=== PATIENT | male | born 1970 | race Caucasian/White ===

== ENCOUNTER 2018-08-28 06:16 | Observation (INO) | payer OTHER ==
[2018-08-26 15:08] LABS: BASOPHILS # (AUTO) 0.1 (0.0-0.1); BASOPHILS % 0.9 % (0.0-1.0); EOSINOPHILS # (AUTO) 0.4 (0.0-0.4); EOSINOPHILS % 3.7 % (0.0-6.0); HEMATOCRIT 47.3 % (38.2-49.6); LYMPHOCYTES # (AUTO) 3.5 (1.0-3.2); LYMPHOCYTES % 30.2 % (18.0-39.1); MEAN CORPUSCULAR HEMOGLOBIN 32.6 pg (28-32); MEAN CORPUSCULAR HGB CONC 33.8 g/dL (31-35); MEAN CORPUSCULAR VOLUME 96.3 fL (81-99); MONOCYTES % 8.8 % (4.4-11.3); NEUTROPHILS # (AUTO) 6.5 (2.1-6.9); PLATELET COUNT 258 x10e3/uL (140-360); RED BLOOD COUNT 4.91 x10e6/uL (4.3-5.7); RED CELL DISTRIBUTION WIDTH 12.8 % (11.7-14.4)
[2018-08-26 15:23] LABS: INR 0.85; PARTIAL THROMBOPLASTIN TIME 27.9 seconds (23.8-35.5); PROTHROMBIN TIME 12.4 seconds (11.9-14.5)
[2018-08-26 15:28] LABS: ANION GAP 17.6 mmol/L (8-16); BLOOD UREA NITROGEN 16 mg/dL (7-26); BUN/CREATININE RATIO 17 (6-25); CALCIUM 10.4 mg/dL (8.4-10.2); CARBON DIOXIDE 26 mmol/L (22-29); CHLORIDE 100 mmol/L (98-107); CREATININE, SERUM 0.93 mg/dL (0.72-1.25); EST GLOMERULAR FILTRATION RATE > 60 ML/MIN (60-); GLUCOSE 118 mg/dL (74-118); POTASSIUM 4.6 mmol/L (3.5-5.1); SODIUM 139 mmol/L (136-145)
--- NOTE | 2018-08-26 16:05 | Diagnostic Imaging Report ---
EXAMINATION: PA and lateral views of the chest. COMPARISON: None CLINICAL HISTORY: Preadmitted for cervical fusion DISCUSSION: Lungs are well-inflated. No focal airspace consolidation, pleural effusion, or pneumothorax. Cardiomediastinal contour and pulmonary vasculature are within normal limits. No acute osseous abnormality. IMPRESSION: No acute cardiopulmonary abnormalities. Signed by: Dr. Rohit Zavala M.D. on 08/26/2018 4:01 PM
[~2018-08-28] VITALS: Ht 185.4 cm; Wt 94.3 kg
[~2018-08-28 06:16] MED LIST: ASPIRIN325 MG PO; DIOVAN160 MG PO; JANUMET 50-1,01 EACH PO; METOPROLOL SUCC50 MG PO
[2018-08-28] MEDS ORDERED: BUPIVACAINE 0.5%/EPI 30 ML SDV INJ ONE (06:41)
[2018-08-28] MEDS ORDERED: THROMBIN FOR SOLN 5,000 UNIT VIAL ONE (06:42)
[2018-08-28] MEDS ORDERED: GELATIN SPONGE 12-7MM ONE (06:42)
[2018-08-28] MEDS ORDERED: BACITRACIN 50,000 UNIT VIAL ONE (06:42)
[2018-08-28] MEDS ORDERED: LIDOCAINE HCL (LTA) 4 ML SOLN ONE (06:57)
[2018-08-28] MEDS ORDERED: ACETAMINOPHEN 1000 MG/100 ML 100 ML IV ONE (06:57)
[2018-08-28] MEDS ORDERED: CEFAZOLIN SOD 2 GM/D5W 50ML 50 ML IV ONE (07:19)
[2018-08-28 07:48] LABS: CLARITY,URINE CLEAR (CLEAR); COLOR,URINE YELLOW (YELLOW)
[2018-08-28 07:49] LABS: BILIRUBIN,URINE NEGATIVE (NEGATIVE); KETONES,URINE NEGATIVE (NEGATIVE); LEUKOCYTE ESTERASE ,URINE NEGATIVE (NEGATIVE); NITRITE,URINE NEGATIVE (NEGATIVE); PROTEIN,URINE DIPSTICK NEGATIVE (NEGATIVE); URINE UROBILINOGEN 0.2 mg/dL (0.2 - 1)
[2018-08-28] MEDS ORDERED: ACETAMINOPHEN 325 MG TAB PO PRN (10:30)
[2018-08-28] MEDS ORDERED: CARISOPRODOL 350 MG TAB PO PRN (10:30)
[2018-08-28] MEDS ORDERED: ZOLPIDEM TARTRATE 5 MG TAB PO PRN (10:30)
[2018-08-28] MEDS ORDERED: MAGNESIUM/ALUMINUM/SIMETHICONE 30 ML UDC PO PRN (10:30)
[2018-08-28] MEDS ORDERED: ONDANSETRON HCL INJ 2 MG/ML VIAL IV PRN (10:30)
[2018-08-28] MEDS ORDERED: OXYCODONE/ACETAMINOPHEN 5-325 1 EACH TABLET PO PRN (10:30)
[2018-08-28] MEDS ORDERED: HYDROMORPHONE 2MG/ML 2 MG/ML ML IV PRN (10:30)
[2018-08-28] MEDS ORDERED: PROMETHAZINE HCL (IM) 25 MG/ML VIAL IM PRN (10:30)
[2018-08-28] MEDS ORDERED: MORPHINE SULFATE 5 MG/ML VIAL IM PRN (10:30)
--- OUTSIDE RECORDS SUMMARY | 2018-08-28 10:46 | XMS REPORT ---
Author Author [facility] Address Unknown Phone Unavailable Care Team Providers Care Hemotherapist Name Role Phone SAMMI WOMACK Unavailable Unavailable Problems This patient has no known problems. Allergies, Adverse Reactions, Alerts This patient has no known allergies or adverse reactions. Medications This patient has no known medications. Results Test Description Test Time Test Comments Text Results Atomic Results Result Comments CHEST 2 VIEWS 2018-08-26 16:00:00 [facility] [address] [place] [address] Patient Name: SO ROMERO MR #: [id number] : 1970 Age/Sex: 48/M Req #: [id number] Adm Physician: Ordered by: SAMMI WOMACK MD Report #: [id number] Location: OR Room/Bed: Procedure: [id number] DX/CHEST 2 VIEWS Exam Date: 08/26/18 Exam Time: 1530 REPORT STATUS: Signed EXAMINATION: PA and lateral views of the chest. COMPAR SIGIFREDO: None CLINICAL HISTORY: Preadmitted for cervical fusion DISCUSSION: Lungs are well-inflated. No focal airspace consolidation, pleural effusion, or pneumothorax. Cardiomediastinal contour and pulmonary vasculature are within normal limits. No acute osseous abnormality. IMPRESSION: No acute cardiopulmonary abnormalities. Signed by: Dr. Sophia Peterson M.D. on 08/26/2018 4:01 PM Dictated By: SOPHIA PETERSON MD 1601 Transcribed By: SUNG on 08/26/18 1601 COPY TO: SAMMI WOMACK MD
--- OUTSIDE RECORDS SUMMARY | 2018-08-28 10:46 | XMS REPORT | Clinical Summary ---
Author Author [facility] Address Unknown Phone Unavailable Care Team Providers Care Organic Extractions Technician Name Role Phone Baljinder Dumont MD PCP Allergies No Known Allergies Medications End Date Status Medication Sig Dispensed Refills Start Date Active aspirin 325 MG tablet Take 325 mg 5 by mouth 8 daily. Active metoprolol tartrate Take 50 mg by 5 (LOPRESSOR) 50 mg tablet mouth 2 (two) 8 times a day with meals. Active sitaGLIPtin-metformin Take 1 tablet 0 (JANUMET) 50-1,000 mg per by mouth 2 tablet (two) times a day with meals. Active valsartan (DIOVAN) 160 MG Take 160 mg 0 tablet by mouth daily. Active Problems Problem Noted Date Ascending aortic aneurysm 04/02/2018 Aortic insufficiency due to bicuspid aortic valve 04/02/2018 Encounters Care Team Description Date Type Specialty Baljinder Dumont MD Pritchard, Sherry M, RD Diabetes mellitus without complication (Primary Dx) 04/07/2018 Consult Weight Management Rusty Du MD Ascending aortic aneurysm (Primary Dx); Aortic insufficiency due to bicuspid aortic valve 04/02/2018 Office Visit Cardiovascular Billie Stout, DENISE Follow-up on New referral for Dr. Du from Dr. Marie (Follow- up on New referral for Dr. Du from Dr. Marie) 04/01/2018 Documentation Cardiovascular Jesus Parks MD Abnormal stress test; Chest pain, unspecified type 03/24/2018 Hospital Radiology Encounter Jesus Parks MD Abnormal stress test (Primary Dx); Chest pain, unspecified type 03/21/2018 Transcribe Access Orders after 08/27/2017 Social History Date Tobacco Use Types Packs/Day Years Used Current Every Day Smoker Cigars 1 Smokeless Tobacco: Former Chew User Comments: Cigars Alcohol Use Drinks/Week oz/Week Comments Yes 12 pack per week Sex Assigned at Date Recorded Not on file Industry Job Start Date Occupation Not on file Not on file Not on file Travel End Travel History Travel Start No recent travel history available. Last Filed Vital Signs Time Taken Vital Sign Reading 04/02/2018 8:28 AM CDT Blood Pressure 152/86 04/02/2018 8:28 AM CDT Pulse 78 04/02/2018 8:28 AM CDT Temperature 37.1 C (98.7 F) 03/24/2018 1:06 PM CDT Respiratory Rate 17 03/24/2018 1:06 PM CDT Oxygen Saturation 99% - Inhaled Oxygen - Concentration 04/07/2018 1:10 PM CDT Weight 101 kg (222 lb) 04/07/2018 1:10 PM CDT Height 185.4 cm (6' 1") 04/07/2018 1:10 PM CDT Body Mass Index 29.29 Plan of Treatment Health Maintenance Due Date Last Done Comments DIABETIC RETINAL EYE EXAM 1970 DIABETIC FOOT EXAM 1981 URINE MICROALBUMIN 1981 INFLUENZA VACCINE 03/12/2018 Procedures Comments Procedure Name Priority Date/Time Associated Diagnosis CTA CORONARY ARTERIES W Routine 03/24/2018 Abnormal stress test CONTRAST 2:40 PM CDT Chest pain, unspecified type after 08/27/2017 Results * Cv cta coronary arteries w contrast (03/24/2018 2:40 PM CDT) Narrative Performed At EXAMINATION:CV CTA CORONARY ARTERIES W CONTRAST [facility] CLINICAL HISTORY:R94.39 Abnormal result of other cardiovascular function study, R07.9 Chest painunspecified, ABN STRESS TECHNIQUE: Multiple CT angiographic images of the heart were obtained during intravenous administration of iodinated contrast. Computerized reformatted images of the coronary arteries and 3-D volume rendered images of the heart were also obtained. Sublingual nitroglycerin was utilized for coronary dilatation. CT imaging was performed with iterative reconstruction techniques and/or automated exposure control to reduce radiation dose. STUDY QUALITY: Satisfactory DOSE (DLP):1477 mGycm COMPARISON:None. FINDINGS: General: Heart is normal in size. The patient is codominant, with PDA contributions from both the RCA and left circumflex. Left main: Normal in caliber and free of disease, normal origin from left coronary cusp. Left anterior descending (LAD): Normal caliber vessel. Mild mixed calcified and noncalcified plaque in the proximal LAD, but with less than 25% stenosis. The first diagonal branch is diminutive in caliber but patent. There is a robust D2, which is widely patent. The distal LAD after D2 origin is small in caliber but free of disease. Left circumflex: Normal caliber vessel, and free of disease. Medium-sized OM1 is free of disease. Small-caliber OM 2 is grossly patent. Right coronary artery: Normal caliber vessel, with normal origin from the right coronary cusp. The RCA is grossly free of disease, although evaluation of the mid RCA is degraded by motion artifact. The acute marginal branch is grossly patent. Patent SA node branch and conus branch is are noted. Ramus: Small caliber ramus intermedius is grossly patent. Stents: None Bypass grafts: None Pulmonary arteries: Main pulmonary artery is normal in caliber. Atrial appendage:There is no evidence of left atrial appendage clot. Left ventricular valve morphology: Trileaflet aortic valve, with mild calcification noted. Mitral valve is grossly unremarkable. Thoracic aortic dimensions: There is aneurysmal dilatation of the ascending aorta. Sinuses of Valsalva: 3.7 cm Sinotubular junction: 3.3 cm Ascending aorta: 4.9 cm Descending aorta: 2.5 cm Pericardium:There is no pericardial effusion or pericardial thickening. Mediastinum:There is no evidence of mediastinal or hilar mass or adenopathy. Lungs: There are no focal consolidations or suspicious pulmonary nodules. Pleura:There is no evidence of pleural effusion or pleural thickening. Upper abdomen: Liver is steatotic. Osseous structures:No focal abnormality. IMPRESSION: 1. Mild disease in the proximal LAD, with less than 25% stenosis suspected. This can be correlated with myocardial perfusion imaging as indicated. 2.Aneurysmal dilatation of ascending aorta to 4.9 cm. 3.Hepatic steatosis [facility]-[id number] Procedure Note [facility], Radiology Results - 03/24/2018 10:04 PM CDT EXAMINATION: CV CTA CORONARY ARTERIES W CONTRAST CLINICAL HISTORY: R94.39 Abnormal result of other cardiovascular function study, R07.9 Chest pain unspecified, ABN STRESS TECHNIQUE: Multiple CT angiographic images of the heart were obtained during intravenous administration of iodinated contrast. Computerized reformatted images of the coronary arteries and 3-D volume rendered images of the heart were also obtained. Sublingual nitroglycerin was utilized for coronary dilatation. CT imaging was performed with iterative reconstruction techniques and/or automated exposure control to reduce radiation dose. STUDY QUALITY: Satisfactory DOSE (DLP): 1477 mGycm COMPARISON: None. FINDINGS: General: Heart is normal in size. The patient is codominant, with PDA contributions from both the RCA and left circumflex. Left main: Normal in caliber and free of disease, normal origin from left coronary cusp. Left anterior descending (LAD): Normal caliber vessel. Mild mixed calcified and noncalcified plaque in the proximal LAD, but with less than 25% stenosis. The first diagonal branch is diminutive in caliber but patent. There is a robust D2, which is widely patent. The distal LAD after D2 origin is small in caliber but free of disease. Left circumflex: Normal caliber vessel, and free of disease. Medium-sized OM1 is free of disease. Small-caliber OM 2 is grossly patent. Right coronary artery: Normal caliber vessel, with normal origin from the right coronary cusp. The RCA is grossly free of disease, although evaluation of the mid RCA is degraded by motion artifact. The acute marginal branch is grossly patent. Patent SA node branch and conus branch is are noted. Ramus: Small caliber ramus intermedius is grossly patent. Stents: None Bypass grafts: None Pulmonary arteries: Main pulmonary artery is normal in caliber. Atrial appendage:There is no evidence of left atrial appendage clot. Left ventricular valve morphology: Trileaflet aortic valve, with mild calcification noted. Mitral valve is grossly unremarkable. Thoracic aortic dimensions: There is aneurysmal dilatation of the ascending aorta. Sinuses of Valsalva: 3.7 cm Sinotubular junction: 3.3 cm Ascending aorta: 4.9 cm Descending aorta: 2.5 cm Pericardium:There is no pericardial effusion or pericardial thickening. Mediastinum:There is no evidence of mediastinal or hilar mass or adenopathy. Lungs: There are no focal consolidations or suspicious pulmonary nodules. Pleura:There is no evidence of pleural effusion or pleural thickening. Upper abdomen: Liver is steatotic. Osseous structures:No focal abnormality. IMPRESSION: 1. Mild disease in the proximal LAD, with less than 25% stenosis suspected. This can be correlated with myocardial perfusion imaging as indicated. 2. Aneurysmal dilatation of ascending aorta to 4.9 cm. 3. Hepatic steatosis [facility]-[id number] Performing Organization Address City/State/Zipcode Phone Number [facility] [address] [place] [address] after 08/27/2017 Insurance Payer Benefit Subscriber ID Type Phone Address Plan / Group [facility] xxxxxxxxx HMO/PPO THCARE CHOICE/CHO ICE + [id number] [place] [address] (Home) [address] [place] [address] (Work) Advance Directives Patient has advance care planning documents on file. For more information, navid ray contact: Piter Brownlee [address] [place] [address]
--- OUTSIDE RECORDS SUMMARY | 2018-08-28 10:46 | XMS REPORT | Clinical Summary ---
Author Author [facility] Address Unknown Phone Unavailable Care Team Providers Care Dry Food Products Mixer Name Role Phone Baljinder Dumont MD PCP [...] ascending aorta to 4.9 cm. 3.Hepatic steatosis [place]-[id number] Procedure Note [facility], Radiology Results - 03/24/2018 10:04 PM CDT [...] aorta to 4.9 cm. 3. Hepatic steatosis [place]-[id number] Performing Organization Address City/State/Zipcode Phone Number [facility] [address] [place] [address] after 08/27/2017 Insurance Payer Benefit Subscriber ID Type Phone Address Plan / Group [facility] xxxxxxxxx HMO/PPO THCARE CHOICE/CHO ICE + [id number] [place] [address] (Home) [address] [place] [address] (Work) Advance Directives Patient has advance care planning documents on file. For more information, navid ray contact: Piter Brownlee [address] [place] [address]
[2018-08-28] MEDS: LACTATED RINGER'S 1,000 ML IV SCH ×2 (11:00→17:19)
[2018-08-28 11:25] VITALS: BP 142/85
[2018-08-28 11:32] VITALS: BP 142/85
[2018-08-28 11:37] VITALS: BP 142/85
--- NOTE | 2018-08-28 11:38 | NUR ---
patient received from PACU via stretcher but ambulated well to the bed. see admit assess. dressing to medial throat dry and intact. hemovac with minimal bright red blood in tubing. patient states he can feel his fingers for the first time in a while. spouse at BS. vitals stable with no complaints or signs of distress at this time.
--- NOTE | 2018-08-28 12:56 | Operative Report ---
DATE OF PROCEDURE: August 28, 2018 PREOPERATIVE DIAGNOSIS: C5-6 and C6-7 disk herniation and spondylosis with radiculopathy, M50.120. POSTOPERATIVE DIAGNOSIS: C5-6 and C6-7 disk herniation and spondylosis with radiculopathy, M50.120. PROCEDURES: 1. C5-6 anterior cervical diskectomy and microsurgical osteophyte resection and allograft fusion, 08053. 2. C6-7 anterior cervical diskectomy and microsurgical osteophyte resection and allograft fusion, 49208. 3. Preparation of tricortical iliac crest allograft, 25256. 4. C5-6 and C6-7 anterior cervical plating with Synthes Zero-Profile Natural plate, 11300. ANESTHESIA: General. INDICATIONS: The patient is a 48-year-old man who presents with C5-6 and C6-7 disk herniations and spondylosis with right-sided cervical radiculopathy and was taken to the operating room for a two-level anterior cervical decompression and fusion. DETAILS OF PROCEDURE: After the induction of general anesthesia, the patient was placed on the operating table in the supine position. The right side of the neck was prepped and draped in sterile fashion. The fluoroscopic C-arm was positioned in cross-table lateral orientation. A transverse incision was created on the right side of the neck superimposed on the C6 vertebral body as determined by fluoroscopy. The platysma was divided in line with the incision, and a subplatysmal dissection was carried out. An avascular plane of dissection was developed medial to the sternocleidomastoid muscle and was followed medial to the carotid sheath to the anterior border of the cervical spine. The deep cervical fascia was opened. The esophagus was retracted to the left. The attachments of longus coli muscles to the anterior lateral aspects of the vertebral bodies of C5, C6 and C7 were divided. The anterior longitudinal ligament was resected. [place] posts were inserted into C5 and C7. The [place] distractor was used to distract both disk spaces. The anterior annuli of the disks were incised with a number 11 blade. The contents of both disks were thoroughly evacuated with angled curets and pituitary rongeurs. The posterior osteophytes were meticulously drilled with a 2 mm cutting bur on a high-speed drill until they were completely removed. The posterior annulus of the disk, herniated disk material, and the posterior longitudinal ligament were resected layer by layer until the dura was fully exposed and decompressed. The medial aspects of the uncinate processes were resected bilaterally to further expose and decompress the origins of the corresponding nerve roots. After a satisfactory decompression had been achieved, the endplates were prepared for fusion. Two pieces of tricortical iliac crest allograft were cut to the sizes and shapes of the disk spaces and were inserted into the disk spaces under distraction and fluoroscopic guidance. The distraction was released, and the distraction posts were removed. The Synthes CSLP variable type anterior cervical plate was selected and affixed to the vertebral bodies of C5, C6 and C7 with three pairs of 14 x 4.35 mm screws. All screw holes were drilled and tapped under lateral fluoroscopic guidance. All screws were locked with the appropriate locking screws. An excellent construct was obtained. The wound was copiously irrigated with Bacitracin solution. Meticulous hemostasis was secured. A small Hemovac drain was placed over the plate and brought out through a separate stab incision. The platysma was closed with 3-0 Vicryl sutures, and the skin was closed with 4-0 Monocryl sutures in subcuticular fashion. Steri-Strips and a dressing were applied. The patient was awakened, extubated, and taken to the postanesthesia care unit in stable condition. No intraoperative complications were encountered. Estimated blood loss was 30 mL. The principal finding was a large disk herniation at C6-7 on the right extending into the right C7 neural foramen and bilateral uncinate hypertrophy at C5-6. Job#: [id number]
[2018-08-28] MEDS: CEFAZOLIN SOD 1 GM/D5W 50ML 50 ML IV SCH ×2 (14:15→22:14)
[2018-08-28 16:30] VITALS: BP 130/76
[2018-08-28] MEDS: METOPROLOL SUCCINATE 50 MG TAB XL PO SCH (17:18)
[2018-08-28] MEDS ORDERED: MIDAZOLAM HCL 2 MG/2 ML VIAL ONE (19:25)
[2018-08-28] MEDS ORDERED: FENTANYL CITRATE/PF 100MCG/2 ML INJ ONE (19:25)
[2018-08-28] MEDS ORDERED: ONDANSETRON HCL INJ 2 MG/ML VIAL ONE (19:48)
[2018-08-28] MEDS ORDERED: SEVOFLURANE INHAL SOLN 250 ML PEN BTL ONE (19:48)
[2018-08-28] MEDS ORDERED: DEXAMETHASONE SOD PHOS INJ 4 MG/ML VIAL ONE (19:48)
[2018-08-28] MEDS ORDERED: ROCURONIUM BROMIDE 10 MG/ML 5ML VIAL ONE (19:48)
[2018-08-28] MEDS ORDERED: EPHEDRINE SULFATE INJ 50 MG/10 ML SYR ONE (19:48)
[2018-08-28] MEDS ORDERED: LIDOCAINE HCL 2% JELLY 5 ML TUBE ONE (19:48)
[2018-08-28] MEDS ORDERED: LIDOCAINE HCL 2% LOCAL INJ 5 ML SDV VIAL INJ ONE (19:48)
[2018-08-28] MEDS ORDERED: PROPOFOL IV EMULSION 10 MG/ML 20 ML VIAL ONE (19:48)
[2018-08-28 20:00] VITALS: BP 130/78
[2018-08-28 20:05] VITALS: BP 138/80
[2018-08-29] VITALS: BP 143/81
[2018-08-29] MEDS: LACTATED RINGER'S 1,000 ML IV SCH (03:02)
[2018-08-29 04:30] VITALS: BP 138/79
[2018-08-29] MEDS: CEFAZOLIN SOD 1 GM/D5W 50ML 50 ML IV SCH (06:17)
--- NOTE | 2018-08-29 07:13 | Diagnostic Imaging Report ---
Exam: Cervical spine frontal and lateral views History: Post surgery Comparison: None. Findings: See impression Impression: AP and lateral radiographs of the cervical spine from the skull base to the top of T1 show postsurgical changes related to anterior fusion of C5, C6, and C7 with an intact plate and screw construct. Alignment is within normal limits. Prevertebral soft tissues show expected postsurgical thickening. Small caliber drainage catheter lies in the right prevertebral soft tissues. Signed by: Dr. Rohit Zavala M.D. on 08/29/2018 7:10 AM
[2018-08-29] MEDS ORDERED: METFORMIN HCL 500 MG TAB PO SCH (08:00)
[2018-08-29 08:09] VITALS: BP 167/88
[2018-08-29] MEDS: METOPROLOL SUCCINATE 50 MG TAB XL PO SCH (08:18)
[2018-08-29 08:57] VITALS: BP 167/88
[2018-08-29] MEDS ORDERED: SITAGLIPTIN 100 MG TAB PO SCH (09:00)
[2018-08-29] MEDS ORDERED: VALSARTAN 160 MG TAB PO SCH (09:00)
[2018-08-29] MEDS ORDERED: NON-FORMULARY MEDICATION (Sitagliptin Phos/Metformin Hcl (Janumet 50-1,000 Mg Tablet) 1 TA PO SCH (09:00)
[2018-08-29 09:23] VITALS: BP 167/88
--- NOTE | 2018-08-29 10:12 | NUR ---
Patient discharged home verbalized understanding of discharge instructions. Escorted patient to front of hospital to meet his ride.
== END 2018-08-29 10:12 | disposition home or self-care (01) ==
LOC: OR 06:16 → PACU V 10:23 → IMCU 11:09
PROVIDERS: ADMIT Neurological Surgery; ATTEND Neurological Surgery
DX: M50.122 Cervical disc disorder at C5-C6 level with radiculopathy (principal); E11.9 Type 2 diabetes mellitus without complications; I10 Essential (primary) hypertension; E78.5 Hyperlipidemia, unspecified; Z79.84 Long term (current) use of oral hypoglycemic drugs; Z79.82 Long term (current) use of aspirin; F17.210 Nicotine dependence, cigarettes, uncomplicated
CPT/HCPCS: 20931; 22551; 22552; 22845; 36415 ×3; 71046; 72040; 77003; 80048; 81003; 82948 ×2; 85025; 85610; 85730; 86850; 86900; 88304; 93005; C1713 ×4; C1763; G0378 ×2; J0131; J0690 ×3; J1100; J1170; J2001 ×2; J2250; J2405; J2704; J7120; J7121